=== PATIENT | female | born 1985 | race African-American/Black ===

== ENCOUNTER 2017-05-20 23:42 | Emergency (ER) | payer OTHER ==
[~2017-05-20] VITALS: Ht 170.2 cm; Wt 72.7 kg
[2017-05-20 23:47] VITALS: BP 136/85
== END 2017-05-21 00:24 | disposition left against medical advice (07) ==
LOC: ER 23:42
DX: Z53.21 Procedure and treatment not carried out due to patient leaving prior to being seen by health care provider (principal)